=== PATIENT | male | born 1975 | race Caucasian/White ===

== ENCOUNTER 2021-11-24 08:53 | Emergency (ER) | payer OTHER, SELFPAY ==
[2021-11-24 08:54] VITALS: BP 170/90; PULSE 107; RESP 16; TEMP 36.6; O2SAT 99; BMI 20.7
[2021-11-24 09:30] VITALS: BP 171/100; PULSE 102; RESP 15; O2SAT 97
--- NOTE | 2021-11-24 09:41 | HMH.EDDENT ---
ED Disposition Clinical Impression: Dental caries, Dental abscess Disposition: Left Against Medical Advice Condition on Discharge: Fair Referrals: Provider,Referral, [Primary Care Provider] - - Critical Care Critical Care Time: No Attestation: On 11/24/21, the high probability of a clinically significant, sudden or life threatening deterioration of the following system(s) required my full and direct attention, intervention and personal management. The time I documented below is in addition to time spent performing reported procedures but includes the following listed in this critical care notation. Medical Decision Making - Medical Records Medical records reviewed: Yes: I reviewed the patient's medical records. - Kendrick Inquiry Pt receiving controlled substance: No Vital Signs: 11/24/21 08:54 11/24/21 09:30 Temperature 97.8 F Temperature Source Oral Pulse Rate 102 H Pulse Rate [Right] 107 H Respiratory Rate 16 15 Blood Pressure 171/100 H Blood Pressure [Right Arm] 170/90 H Blood Pressure Mean 112 Blood Pressure Mean [Right Arm] 116 Blood Pressure Source [Right Arm] Automatic Cuff Blood Pressure Position [Right Arm] Sitting 02 Sat by Pulse Oximetry 99 97 Oxygen Delivery Method Room Air Orders (Tests/Meds): ED MEDICATIONS Generic Name Dose Route Start Last Admin Trade Name Freq PRN Reason Stop Dose Admin Sodium Chloride 1,000 mls @ 999 mls/hr 11/24/21 09:30 Sod Chlor 0.9% 1000ml Bag IV 11/24/21 10:30 .Q1H1M DAREK Clindamycin Phosphate 900 mg/ 106 mls @ 100 mls/hr 11/24/21 09:30 Sodium Chloride IV 11/24/21 10:33 ONCE ONE Discontinued Medications Generic Name Dose Route Start Last Admin Trade Name Freq PRN Reason Stop Dose Admin Ketorolac Tromethamine 30 mg 11/24/21 09:29 Ketorolac 30mg/Ml Vial IV 11/24/21 09:30 ONCE ONE Morphine Sulfate 4 mg 11/24/21 09:29 Morphine 4mg/Ml Syringe IV 11/24/21 09:30 ONCE ONE Ondansetron HCl 4 mg 11/24/21 09:29 Ondansetron 4mg/2ml Vial IV 11/24/21 09:30 ONCE ONE ORDERS Category Date Time Status CT facial bones w con Stat Cat Scan 11/24/21 09:[address] soft tissue neck w con Stat Cat Scan 11/24/21 09:30 Ordered Complete Blood Count Auto Diff Stat Lab 11/24/21 09:29 Ordered Comprehensive Metabolic Panel Stat Lab 11/24/21 09:29 Ordered - Reevaluation(s) Time: 10:02 Reevaluation #1: Upon going to reevaluate the patient, he stated that he did not want any blood work or treatment. States that we do not know what we were doing. The patient does have some significant swelling and I am concerned for deep abscess extending into the neck. I do need to obtain imaging and laboratory studies. I provided him with analgesics as well as antibiotic therapy, however he is declining. The patient is alert and has full decision-making capability. He is declining any further medical treatment. The patient got up and left without completing his medical treatment. Medical Decision Narrative: 46-year-old male presented to the emergency department with some dental swelling. Patient has findings concerning for infected dental carry an abscess. CT will be obtained. Antibiotics provided. Dental HPI - General Chief complaint: Dental/Oral Stated complaint: oral pain/swelling Time Seen by Provider: 11/24/21 09:00 Mode of Arrival: Ambulatory Limitations: No Limitations Description of Symptoms (Recalled from ER Triage Doc. by RN): pt advises he has a bad tooth on his lower right jaw and it has gotten progressively worse over the past 3 days. Pt is noted to have visible swelling, advises he has not been to see a dentist - History of Present Illness HPI Narrative: This is a 46-year-old male presented to the emergency department with some dental pain. Patient is a longstanding history of poor dentition. He states that he had some swelling in his right lower tooth cough 3 days ago. He
--- NOTE | 2021-11-24 10:17 | PC.NURSE ---
Pt was walking out of his room towards the exit and I asked him where he was going because I was fixing to come in and attempt IV access. Pt threw his hand up and said he was leaving. I advised him MD had ordered lab work, IV meds and CT scans. He stopped and threw his hands up again and advised that we couldn't do labs on him and we wouldn't be able to find a vein. I tried to explain to patient again but he threw his hands up and walked out the ER exit with no other issues.
[2021-11-24 10:21] VITALS: BP 171/100; PULSE 102; RESP 16; TEMP 36.6; O2SAT 97
== END 2021-11-24 10:23 | disposition left against medical advice (07) ==
PROVIDERS: Emergency Provider Emergency Medicine
DX: Z53.21 Procedure and treatment not carried out due to patient leaving prior to being seen by health care provider (principal)
CPT/HCPCS: 99281

== ENCOUNTER 2021-11-27 00:33 | Emergency (ER) | payer OTHER, SELFPAY ==
[2021-11-27] VITALS (7 sets, daily range): BP systolic 140–156; BP diastolic 63–101; PULSE 83–104; RESP 16–22; TEMP 36.7–36.9; O2SAT 94–99; BMI 21.4
--- NOTE | 2021-11-27 00:43 | CT_ITS ---
PROCEDURE INFORMATION: Exam: CT Neck With Contrast Exam date and time: 11/27/2021 12:43 AM Age: 46 years old Clinical indication: Mass, lump, or swelling in neck; Neck pain; Patient HX: Pain, redness and swelling on right side of neck TECHNIQUE: Imaging protocol: Computed tomography images of the neck with contrast. Radiation optimization: All CT scans at this facility use at least one of these dose optimization techniques: automated exposure control; mA and/or kV adjustment per patient size (includes targeted exams where dose is matched to clinical indication); or iterative reconstruction. Contrast material: ISOVUE; Contrast volume: 75 ml; Contrast route: IV; COMPARISON: No relevant prior studies available. FINDINGS: Brain: There is mass effect/occlusion of the right IJ. Nasopharynx: Unremarkable. Oropharynx: Unremarkable. No significant tonsillar enlargement. Hypopharynx: Unremarkable. Larynx: Unremarkable. Normal epiglottis. Retropharyngeal space: Unremarkable. Submandibular/Parotid glands: Normal. Glands are normal in size. Thyroid: Normal. No enlarged or calcified nodules. Lymph nodes: Reactive adenopathy present. Trachea: Leftward deviation of the trachea is present. Lungs: Unremarkable as visualized. Bones/joints: Unremarkable. No acute fracture. Soft tissues: Right-sided anterior and posterior mediastinum air densities extending up to the right cervical soft tissues, deep to the sternocleidomastoid, to the right exerciser horse space with rim enhancement, right submandibular space with rim enhancement, and right parapharyngeal space. IMPRESSION: 1. Right-sided anterior and posterior mediastinum air densities extending up to the right cervical soft tissues, deep to the sternocleidomastoid, to the right exerciser horse space with rim enhancement, right submandibular space with rim enhancement, and right parapharyngeal space. The origin of the subcutaneous emphysema is indeterminate, and could be of infectious origin, or right-sided pneumomediastinum with dissection of air cranially. If clinical presentation favors infection, findings are highly suggestive of necrotizing fasciitis. Recommend urgent surgical consultation. 2. There is mass effect/occlusion of the right IJ. THIS REPORT CONTAINS FINDINGS THAT MAY BE CRITICAL TO PATIENT CARE. The findings were verbally communicated via telephone conference with LARRY CHAPIN at 2:57 AM EST on 11/27/2021. The findings were acknowledged and understood.
[2021-11-27 01:28] LABS: Basophils % 0.3 % (0.1-2.0); Eosinophils % 0.1 % (0.1-12.0); Hematocrit 42.8 % (42.0-52.0); Hemoglobin 13.6 g/dL (14.1-18.0); Lymphocytes # 0.8 K/mm3 (0.7-4.5); Lymphocytes % 6.4 % (10-50); Mean Corpuscular HGB Conc 31.7 g/dL (31.8-35.4); Mean Corpuscular Hemoglobin 29.2 pg (27.0-31.2); Mean Corpuscular Volume 92.2 fl (80-94); Mean Platelet Volume 8.9 fl (7.4-10.4); Monocytes # 0.7 K/mm3 (0.1-1.0); Monocytes % 5.3 % (1.7-9.3); Neutrophils % 87.9 % (37.0-80.0); Platelet Count 188 K/mm3 (142-424); Red Blood Count 4.65 M/mm3 (4.60-6.20); Red Cell Distribution Width 14.4 % (11.5-17.5); White Blood Count 12.5 K/mm3 (4.8-10.8)
[2021-11-27 01:33] LABS: MANUAL DIFFERENTIAL MANUAL DIFFERENTIAL (MANUAL DIFF)
[2021-11-27 01:40] LABS: Alanine Aminotransferase 19 U/L (12-78); Albumin Level 3.4 g/dl (3.5-5.0); Albumin/Globulin Ratio 0.9 (1.1-1.8); Alkaline Phosphatase 175 U/L (38-126); Anion Gap 13.9 mEq/L (5-15); Aspartate Amino Transferase 42 U/L (17-59); Bilirubin,Total 1.3 mg/dl (0.2-1.3); Blood Urea Nitrogen 47 mg/dl (9-20); Calcium 9.3 mg/dl (8.4-10.2); Carbon Dioxide 27 mmol/L (22.0-30.0); Chloride 97 mmol/L (98-107); Creatinine Clearance Estimated 67 mL/min (50-200); Estimated Glomerular Filt Rate 60 ml/min (>60); GFR (African American) 72 ML/MIN (>60); Globulin 3.9 g/dL (1.3-3.2); Glucose 104 mg/dl (74-100); Lactic Acid 1.8 mmol/L (0.7-2.1); Lymphocytes % 11 % (10-50); Neutrophils % 77 % (42-76); Platelet Estimate Normal; Potassium 3.9 mmoL/L (3.5-5.1); RBC Morphology Normal; Sodium 134 mmol/L (136-145); Total Cells Counted 100; Total Protein,Serum 7.3 g/dl (6.3-8.2)
--- NOTE | 2021-11-27 01:40 | HMH.EDSKAF ---
ED Disposition Clinical Impression: Necrotizing fasciitis, SIRS (systemic inflammatory response syndrome) Disposition: Xfer Short-Term Hosp Condition on Discharge: Serious Referrals: Provider,Referral, [Primary Care Provider] - - Critical Care Critical Care Time: Yes Attestation: On 11/27/21, the high probability of a clinically significant, sudden or life threatening deterioration of the following system(s) required my full and direct attention, intervention and personal management. The time I documented below is in addition to time spent performing reported procedures but includes the following listed in this critical care notation. Total Critical Care Time: 60 Vital system(s) involved:: Metabolic Failure My critical care processes included: Assessment & monitoring of V/S, Data Review/Interpretation, Coordinating Care, Documentation Medical Decision Making - Medical Records Medical records reviewed: Yes: I reviewed the patient's medical records. - Kendrick Inquiry Pt receiving controlled substance: No Vital Signs: 11/27/21 00:34 11/27/21 02:13 11/27/21 02:30 Temperature 98.4 F Temperature Source Oral Pulse Rate 104 H 103 H Pulse Rate [Right] 92 H Respiratory Rate 22 Blood Pressure 155/77 H 141/80 H Blood Pressure [Right Arm] 156/101 H Blood Pressure Mean 87 100 Blood Pressure Mean [Right Arm] 119 02 Sat by Pulse Oximetry 99 96 94 L 11/27/21 03:00 11/27/21 03:30 11/27/21 04:01 Temperature Temperature Source Pulse Rate 100 H 94 H 83 Pulse Rate [Right] Respiratory Rate 18 16 Blood Pressure 140/80 146/79 H 142/63 H Blood Pressure [Right Arm] Blood Pressure Mean 100 90 85 Blood Pressure Mean [Right Arm] 02 Sat by Pulse Oximetry 99 94 L 95 - Lab Data Lab results reviewed: Yes: I reviewed the patient's lab results. Lab Results 11/27/21 01:18: WBC 12.5 H, RBC 4.65, Hgb 13.6 L, Hct 42.8, MCV 92.2, MCH 29.2, MCHC 31.7 L, RDW 14.4, Plt Count 188, MPV 8.9, Neut % (Auto) 87.9 H, Lymph % (Auto) 6.4 L, [place] % (Auto) 5.3, Eos % (Auto) 0.1, Baso % (Auto) 0.3, Neut # (Auto) 11.0 H, Lymph # (Auto) 0.8, [place] # (Auto) 0.7, Eos # (Auto) 0.0, Baso # (Auto) 0.0, Total Counted 100, Neutrophils % (Manual) 77 H, Band Neutrophils % 12.0 H, Lymphocytes % (Manual) 11, Platelet Estimate Normal, RBC Morphology Normal, ESR 67 H 11/27/21 01:18: Sodium 134 L, Potassium 3.9, Chloride 97 L, Carbon Dioxide 27, Anion Gap 13.9, BUN 47 H, Creatinine 1.30 H, Estimated Creat Clear 67, Estimated GFR 60, Est GFR ( Amer) 72, Glucose 104 H, Calcium 9.3, Total Bilirubin 1.3, AST 42, ALT 19, Alkaline Phosphatase 175 H, C-Reactive Protein 270.0 H, Total Protein 7.3, Albumin 3.4 L, Globulin 3.9 H, Albumin/Globulin Ratio 0.9 L, Procalcitonin 21.0 H 11/27/21 01:18: Lactate 1.8 11/27/21 01:44: SARS-CoV-2 (PCR) Not detected, Influenza A Untype (PCR) Not detected, Influenza Type B (PCR) Not detected Result diagrams: 11/27/21 01:18 11/27/21 01:18 Orders (Tests/Meds): ED MEDICATIONS Generic Name Dose Route Start Last Admin Trade Name Freq PRN Reason Stop Dose Admin Sodium Chloride 1,000 mls @ 999 mls/hr 11/27/21 01:30 11/27/21 01:30 Sod Chlor 0.9% 1000ml Bag IV 11/27/21 02:30 999 mls/hr .Q1H1M DAREK Administration Clindamycin Phosphate 900 mg/ 106 mls @ 100 mls/hr 11/27/21 04:04 11/27/21 04:07 Sodium Chloride IV 11/27/21 05:07 100 mls/hr ONCE ONE Administration Miscellaneous 1 each 11/27/21 02:00 11/27/21 01:56 Vancomycin Consult Request * 12/27/21 01:59 1 each CONSULT PHARMACY DAREK Administration Discontinued Medications Generic Name Dose Route Start Last Admin Trade Name Freq PRN Reason Stop Dose Admin Vancomycin/PEG/NADA/Lysine/Water 1.25 gm in 250 mls @ 125 mls/hr 11/27/21 02:00 11/27/21 02:09 Vancomycin 1.25gm/250ml (Peg) Premix IV 11/27/21 03:59 125 mls/hr ONCE ONE Administration Iopamidol 75 ml 11/27/21 02:10 11/27/21 02:11 Iopamidol-370 (76%)
[2021-11-27 02:00] LABS: Coronavirus 19, PCR Not Detected (NotDetected); Influenza A, PCR Not Detected (NotDetected); Influenza B, PCR Not Detected (NotDetected)
[2021-11-27 02:01] LABS: Erythrocyte Sedimentation Rate 67 mm/hr (0-15)
--- NOTE | 2021-11-27 02:52 | PC.NURSE ---
Kael called to consult with regarding patient results.
--- NOTE | 2021-11-27 03:02 | XR_ITS ---
PROCEDURE INFORMATION: Exam: XR Chest Exam date and time: 11/27/2021 3:02 AM Age: 46 years old Clinical indication: Abnormal findings; Abnormal radiologic exam of lung or chest; Patient HX: Redness and swelling to right side of neck; Additional info: Abnormal CT TECHNIQUE: Imaging protocol: XR of the chest. Views: 2 views. COMPARISON: CT SOFT TISSUE NECK W CON 11/27/2021 1:54 AM FINDINGS: Lungs: Bibasilar opacities partially silhouette the diaphragm are favored to represent combination of atelectasis/pleural effusion/consolidation. Pleural spaces: See Lungs finding. Heart/Mediastinum: See Bones/joints finding. Bones/joints: Right cervical and right mediastinal emphysematous changes present, and better observed on the comparison soft tissue neck CT. IMPRESSION: 1. Bibasilar opacities partially silhouette the diaphragm are favored to represent combination of atelectasis/pleural effusion/consolidation. 2. Right cervical and right mediastinal emphysematous changes present, and better observed on the comparison soft tissue neck CT.
--- NOTE | 2021-11-27 04:08 | PC.NURSE ---
Called [facility] for possible transfer, Dr. Gonzales s/w Dr. Branham and he has accepted transfer to [facility].
--- NOTE | 2021-11-27 04:27 | PC.NURSE ---
Called [facility] for transfer, they are unable to transport while pt is receiving Clindamycin. They report to call hospital for special care when med is complete. Report called to [facility], s/w K[facility].
== END 2021-11-27 05:40 | disposition short-term general hospital (02) ==
PROVIDERS: Emergency Provider Emergency Medicine
DX: M72.6 Necrotizing fasciitis (principal); K04.7 Periapical abscess without sinus; R65.10 Systemic inflammatory response syndrome (SIRS) of non-infectious origin without acute organ dysfunction
CPT/HCPCS: 70491; 71046; 80053; 83605; 84145; 85007; 85025; 85651; 86140; 87040; 87077; 87186; 96365; 96366; 96375; 99284; C9803; J2405; Q9967; U0003; U0005